=== PATIENT | female | born 1945 | race Two or more races ===

== ENCOUNTER 2017-09-18 15:38 | Emergency (ER) | payer MEDICARE, MEDICAID ==
[~2017-09-18] VITALS: Ht 157.5 cm; Wt 50.0 kg
[~2017-09-18 15:38] MED LIST: CAP25; PROT40
[2017-09-18] MEDS ORDERED: CAPT25TA3 PO (17:08)
[2017-09-18 20:30] VITALS: BP 162/87
== END 2017-09-18 20:40 | disposition home or self-care (01) ==
LOC: ER 17:56
DX: H11.32 Conjunctival hemorrhage, left eye (principal); I10 Essential (primary) hypertension
CPT/HCPCS: 99283

== ENCOUNTER 2022-06-14 12:30 | Emergency (ER) | payer MEDICARE, MEDICAID ==
[~2022-06-14] VITALS: Ht 157.5 cm; Wt 64.0 kg
[~2022-06-14 12:30] MED LIST changes: +CAPT25TA3 PO
[2022-06-14 13:07] VITALS: BP 144/84
== END 2022-06-14 20:04 | disposition left against medical advice (07) ==
LOC: ER 12:51
DX: Z53.21 Procedure and treatment not carried out due to patient leaving prior to being seen by health care provider (principal)
CPT/HCPCS: 82962; 93005

== ENCOUNTER 2023-07-13 18:01 | Emergency (ER) | payer MEDICARE, MEDICAID ==
[~2023-07-13] VITALS: Ht 160 cm; Wt 63.5 kg
[2023-07-13 23:16] VITALS: BP 178/104; PULSE 95; RESP 16; TEMP 98.8; O2SAT 98
[2023-07-13] MEDS ORDERED: TOPUD MT (23:51)
[2023-07-13] MEDS ORDERED: IBUP-1523 MT (23:51)
== END 2023-07-14 00:21 | disposition home or self-care (01) ==
LOC: ER 18:01
DX: S60.032A Contusion of left middle finger without damage to nail, initial encounter (principal); W19.XXXA Unspecified fall, initial encounter; Y93.89 Activity, other specified; Y92.89 Other specified places as the place of occurrence of the external cause; Y99.8 Other external cause status; I10 Essential (primary) hypertension; Z90.49 Acquired absence of other specified parts of digestive tract; K80.20 Calculus of gallbladder without cholecystitis without obstruction
CPT/HCPCS: 73130; 99283